=== PATIENT | male | born 1985 | race Caucasian/White ===

== ENCOUNTER 2022-09-21 16:40 | Emergency (ER) | payer SELFPAY ==
[~2022-09-21] VITALS: Ht 172.7 cm; Wt 111.8 kg
[2022-09-21 16:42] VITALS: BP 151/71
[2022-09-21] MEDS ORDERED: methylPREDNISolone SS 125 MG/2 ML VIAL IVP ONE (16:45)
[2022-09-21] MEDS ORDERED: FAMOTIDINE 20 MG/2 ML VIAL IVP ONE (16:45)
[2022-09-21] MEDS ORDERED: diphenhydrAMINE 50 MG/ML VIAL ONE (16:45)
[2022-09-21] MEDS ORDERED: methylPREDNISolone SS 125 MG/2 ML VIAL ONE (16:45)
[2022-09-21] MEDS ORDERED: EPINEPHrine 1 MG/ML AMP IM ONE (16:45)
[2022-09-21] MEDS ORDERED: diphenhydrAMINE 50 MG/ML VIAL IVP ONE (16:45)
[2022-09-21] MEDS ORDERED: EPINEPHrine 1 MG/ML AMP ONE (16:46)
--- NOTE | 2022-09-21 16:59 | NUR ---
here for facial edema, erythema, hives, sob, throat closing sensation, SR on cm, o2 sat 98% ra, already medicated as ordered, sr up times 2.
--- NOTE | 2022-09-21 17:57 | NUR ---
a/o times 4, no facial erythema or rash, o2 sat 99% ra, lungs ctab, no hives, sr up times 2
[2022-09-21] MEDS ORDERED: EPIN1KIT31 IM (18:03)
[2022-09-21] MEDS ORDERED: PRED20TA5 PO (18:03)
[2022-09-21] MEDS ORDERED: DIPH25TA53 PO (18:03)
[2022-09-21] MEDS ORDERED: FAMO-90 PO (18:03)
--- NOTE | 2022-09-21 19:51 | NUR ---
pt laying in bed locked in lowest position awake and alert, pt has erythema around sting site otherwise reports feeling better, denies sob, feeling any throat tightness, no hives to body, edema or other symptoms at this time.
[2022-09-21 21:07] VITALS: BP 155/53
--- NOTE | 2022-09-21 21:09 | NUR ---
Patient discharged with v/s stable. Written and verbal after care instructions given and explained. Patient alert, oriented and verbalized understanding of instructions. Ambulatory with steady gait. All questions addressed prior to discharge. ID band removed. Patient advised to follow up with PMD. Rx of BENADRYL, EPIPEN, PEPCID, DELTASONE given. Patient educated on indication of medication including possible reaction and side effects. Opportunity to ask questions provided and answered.
== END 2022-09-21 21:03 | disposition home or self-care (01) ==
LOC: MED 16:40
DX: T78.2XXA Anaphylactic shock, unspecified, initial encounter (principal); T78.49XA Other allergy, initial encounter; Z91.030 Bee allergy status; X58.XXXA Exposure to other specified factors, initial encounter
CPT/HCPCS: 96372; 96374; 96375; 99284; J0171; J1200; J2930; J3490